=== PATIENT | female | born 1950 | race Caucasian/White ===

== ENCOUNTER 2016-11-13 14:31 | Inpatient (IN) | payer OTHER ==
[2016-11-13] VITALS (7 sets, daily range): BP systolic 0–139; BP diastolic 0–82
[~2016-11-13] VITALS: Ht 157.5 cm; Wt 53.3 kg
[~2016-11-13 14:31] MED LIST: ADVAIR; ADVAIR 250/501 DISK IH; ALPRAZOLAM1 MG; AMBIEN CR12.5 MG PO; AMBIEN10 MG PO; AMBIEN5 MG PO; ASPIR 8181 M1 PO; ASPIR-LOW81 MG PO; ASPIRIN E.C.81 M1 PO; ASPIRIN EC325 MG PO; ASPIRIN325 MG PO; ATORVASTATIN; ATORVASTATIN CA40 MG PO; Advair HFA 115/21 IH; Aspirin E.C. PO; B COMPLETE1 EACH PO; CALCIUM CARB1 TABLET PO; CARDIZEM CD,CA120 MG PO; CEFTIN500 MG PO; CITRATE OF MAG296 ML PO; CLOPIDOGREL75 MG PO; CONCERTA18 MG PO; CORRECTOL5 M1 PO; COZAAR25 MG PO; DAILY MULTIPLE1 EACH PO; DECLOMYCIN150 MG PO; DEPAKOTE500 MG PO; DIAZEPAM2 MG PO; DIAZEPAM5 MG PO; DIGITEK250 MC2 PO; DIGOXIN250 MCG PO; DILAUDID1 MG/ML IV; DILAUDID2 MG PO; DILAUDID4 MG PO; DIVALPROEX SOD500 M1 PO; DIVALPROEX SOD500 MG PO; DULCOLAX10 MG PR; ENALAPRIL MALEAT5 MG PO; FAMOTIDINE20 MG PO; FLEET ENEMA-AD118 ML PR; FLORANEX CHE1 TABLET PO; FUROSEMIDE20 MG PO; GLUCOSE4 GM PO; HYDROMORPHONE HC4 MG PO; IBUPROFEN200 M1 PO; IPRATR-ALBUTEROL3 ML IH; IPRATROPIU0.2 MG/1 M IH; ISOSORBIDE MONO60 MG PO; KADIAN30 MG PO; KETOCONAZOLE60 GM TP; LASIX20 MG PO; LEVAQUIN750 MG PO; LICORICE ROOT; LIPITOR40 MG PO; LOPRESSOR100 M1 PO; LOPRESSOR25 MG PO; LOPRESSOR50 MG PO; LORATADINE10 M2 PO; LOSARTAN POTASS25 MG PO; LOVENOX40 MG/0.4 SC; LOVENOX60 MG/0.6 SC; LYRICA50 MG PO; Lasix PO; Lecithin; Lipitor PO; Lopressor PO; MAALOX ADVANCE355 ML PO; METAMUCIL0.52 GM PO; METHYLPHENIDATE36 MG; METOPROLOL; METOPROLOL SUC100 MG; METOPROLOL TA37.5 MG PO; METOPROLOL TAR100 MG PO; METOPROLOL TART25 MG PO; METOPROLOL TART50 MG PO; MILK OF MAGN PO; MORPHINE SULFAT15 M1 PO; MORPHINE SULFAT30 M2 PO; MOXIFLOXACIN H400 MG PO; MUCINEX600 MG PO; MUCUS ER600 MG PO; NALOXONE HC1 MG/1 ML IV; NICOTINE PATCH1 EAC2 TD; NITRO; NITRO-DUR1 EAC1 TD; NITROGLYCERIN0.4 MG SL; NITROGLYCERIN1 EAC1 TD; NITROPATCH; NITROSTAT0.4 MG SL; OMEGA-31000 M1 PO; OMEPRAZOLE20 MG PO; ONDANSETRON4 MG/2 ML IV; PHILLIPS'400 MG/5 M PO; PLAVIX75 MG PO; PREDNISONE10 MG PO; PREDNISONE20 MG PO; PREDNISONE50 MG PO; PRILOSEC20 MG PO; PROAIR HFA8.5 GM IH; PROCHLORPERAZINE5 MG PO; PROMETHAZINE12.5 M1 PO; PULMICORT FLE180 MCG IH; Plavix PO; QUETIAPINE FUMA25 MG PO; RANITIDINE HCL150 M1 PO; RANITIDINE HCL150 MG PO; ROCEPHIN; SENNA-DOCUSATE1 EAC1 PO; SENNA-TIME S T1 EACH PO; SENOKOT,SENN1 TABLET PO; SEROquel PO; SERTRALINE HCL100 MG; SILVASORB TP; SODIUM CHLORIDE1 G1 PO; SPIRIVA RESPIMAT4 GM IH; SYMBICORT60 INHALAT IH; SYNTHROID; TRAZODONE HCL50 MG PO; TYLENOL REGULA325 MG PO; VALIUM5 MG PO; VALSARTAN40 MG PO; VENTOLIN HFA18 GM IH; VITAMIN D31000 UNIT PO; VITAMIN E1000 UNI1 PO; Valium PO; ZITHROMAX Z-PA250 MG PO; ZOLPIDEM TART12.5 MG PO; ZOLPIDEM TARTRA10 MG PO; Zestril,Prinivil PO
[2016-11-13 15:57] LABS: HEMATOCRIT 38.4 % (36.0-46.0); MCH 30.5 PG (29.0-34.0); MCHC 32.8 G/DL (30.0-36.0); MEAN PLAT.VOLUME 9.8 uM^3 (9.5-12.4); RBC DIS.WIDTH-CV 14.9 % (11.8-14.6); RBC DIS.WIDTH-SD 48.4 % (39-53)
[2016-11-13 16:00] LABS: PLATELET COUNT 293 K/uL (156-360); RED BLOOD COUNT 4.13 M/uL (3.80-5.20); WHITE BLOOD COUNT 20.8 K/uL (4.1-10.2)
[2016-11-13 16:01] LABS: CARBON DIOXIDE (BICARBONATE) 34.4 MEQ/L (20-31)
[2016-11-13 16:02] LABS: CHLORIDE 95 mEq/L (99-109); POTASSIUM 5.1 mEq/L (3.7-5.4); SODIUM 134 mEq/L (136-147)
[2016-11-13 16:04] LABS: GLUCOSE 190 mg/dL (70-99)
[2016-11-13 16:06] LABS: ANION GAP 13 MEQ/L (2-14)
[2016-11-13 16:08] LABS: GFR ESTIMATE (CALCULATED) 59 mL/min/
[2016-11-13 16:09] LABS: UREA NITROGEN (BUN) 18 mg/dL (9-23)
[2016-11-13 16:15] LABS: TROP-I INTERPRETATION NEGATIVE; TROPONIN-I 0.25 ng/mL (0.0-0.30)
[2016-11-13 21:13] LABS: METH RESISTANT S AUREUS PCR NEGATIVE (NEGATIVE)
[2016-11-13 21:17] LABS: PROBE CHECK PASS; SPECIMEN PROCESSING CONTROL PASS
[2016-11-13] MEDS ORDERED: KADIAN30 MG PO (23:31)
[2016-11-13] MEDS ORDERED: DILAUDID4 MG PO (23:38)
[2016-11-13] MEDS ORDERED: NITROGLYCERIN0.4 MG SL (23:39)
[2016-11-13] MEDS ORDERED: AMBIEN10 MG PO (23:40)
[2016-11-13] MEDS ORDERED: CORRECTOL5 M1 PO (23:41)
[2016-11-13] MEDS ORDERED: PLAVIX75 MG PO (23:41)
[2016-11-13] MEDS ORDERED: KETOCONAZOLE60 GM TP (23:42)
[2016-11-13] MEDS ORDERED: PRILOSEC20 MG PO (23:43)
[2016-11-13] MEDS ORDERED: FLORANEX CHE1 TABLET PO (23:44)
[2016-11-13] MEDS ORDERED: NITROGLYCERIN1 EAC1 TD (23:46)
[2016-11-13] MEDS ORDERED: PROMETHAZINE12.5 M1 PO (23:47)
[2016-11-13] MEDS ORDERED: MAALOX ADVANCE355 ML PO (23:48)
[2016-11-13] MEDS ORDERED: TRAZODONE HCL50 MG PO (23:49)
[2016-11-13] MEDS ORDERED: MILK OF MAGN PO (23:50)
[2016-11-13] MEDS ORDERED: PROAIR HFA8.5 GM IH (23:51)
[2016-11-13] MEDS ORDERED: LO-DOSE ASPIRIN81 M2 PO (23:52)
[2016-11-13] MEDS ORDERED: LIPITOR40 MG PO (23:52)
[2016-11-13] MEDS ORDERED: LASIX20 MG PO (23:54)
[2016-11-13] MEDS ORDERED: DEPAKOTE250 MG PO (23:54)
[2016-11-13] MEDS ORDERED: COZAAR25 MG PO (23:55)
[2016-11-13] MEDS ORDERED: SODIUM CHLORIDE1 G1 PO (23:55)
[2016-11-13] MEDS ORDERED: MUCUS ER600 MG PO (23:56)
[2016-11-13] MEDS ORDERED: DELTASONE20 M1 PO (23:58)
[2016-11-13] MEDS ORDERED: METOPROLOL TA37.5 MG PO (23:59)
[2016-11-13] MEDS ORDERED: LEVAQUIN750 MG PO (23:59)
[2016-11-14] VITALS (9 sets, daily range): BP systolic 96–153; BP diastolic 54–98
[2016-11-14 06:26] LABS: MCH 30.4 PG (29.0-34.0); MCHC 32.8 G/DL (30.0-36.0); MCV 92.8 FL (83-99); RBC DIS.WIDTH-CV 15.1 % (11.8-14.6); RBC DIS.WIDTH-SD 51.4 % (39-53); RED BLOOD COUNT 3.45 M/uL (3.80-5.20); WHITE BLOOD COUNT 9.6 K/uL (4.1-10.2)
[2016-11-14 06:47] LABS: ANION GAP 9 MEQ/L (2-14); CHLORIDE 95 MEQ/L (99-109); GFR ESTIMATE (CALCULATED) > 59 mL/min/; POTASSIUM 4.5 MEQ/L (3.7-5.4); SAMPLE HEMOLYSIS CHECK 0; SAMPLE ICTERIC CHECK 0; SAMPLE LIPEMIA CHECK 0; SODIUM 135 MEQ/L (136-147); UREA NITROGEN (BUN) 19 mg/dL (9-23)
[2016-11-14 06:55] LABS: GLUCOSE 82 mg/dL (70-99)
[2016-11-14 07:01] LABS: TROP-I INTERPRETATION NEGATIVE; TROPONIN-I 0.17 ng/mL (0.0-0.30)
[2016-11-14 07:10] LABS: MEAN PLAT.VOLUME 10.4 uM^3 (9.5-12.4)
[2016-11-14 07:15] LABS: PLATELET COUNT 192 K/uL (156-360)
[2016-11-14 13:10] LABS: TROP-I INTERPRETATION NEGATIVE; TROPONIN-I 0.13 ng/mL (0.0-0.30)
[2016-11-15] VITALS: BP 148/91
[2016-11-15 04:13] VITALS: BP 122/64
[2016-11-15 06:25] LABS: MCHC 32.8 G/DL (30.0-36.0); MCV 91.5 FL (83-99); MEAN PLAT.VOLUME 10.2 uM^3 (9.5-12.4); PLATELET COUNT 192 K/uL (156-360); RBC DIS.WIDTH-CV 14.9 % (11.8-14.6); RED BLOOD COUNT 3.17 M/uL (3.80-5.20); WHITE BLOOD COUNT 7.9 K/uL (4.1-10.2)
[2016-11-15 07:02] LABS: ANION GAP 5 MEQ/L (2-14); CHLORIDE 90 MEQ/L (99-109); GFR ESTIMATE (CALCULATED) > 59 mL/min/; MAGNESIUM 1.9 mg/dl (1.3-2.7); POTASSIUM 4.3 MEQ/L (3.7-5.4); SAMPLE HEMOLYSIS CHECK 0; SAMPLE ICTERIC CHECK 0; SAMPLE LIPEMIA CHECK 0; SODIUM 129 MEQ/L (136-147); UREA NITROGEN (BUN) 18 mg/dL (9-23)
[2016-11-15 07:04] LABS: GLUCOSE 108 mg/dL (70-99)
[2016-11-15 08:18] VITALS: BP 126/68
[2016-11-15 11:30] VITALS: BP 110/57
[2016-11-15 16:38] VITALS: BP 135/90
[2016-11-15 20:44] VITALS: BP 132/68
[2016-11-16 04:05] VITALS: BP 139/84
[2016-11-16 05:01] LABS: HEMATOCRIT 31.7 % (36.0-46.0); MCH 29.9 PG (29.0-34.0); MCHC 32.8 G/DL (30.0-36.0); MCV 91.1 FL (83-99); MEAN PLAT.VOLUME 9.9 uM^3 (9.5-12.4); PLATELET COUNT 221 K/uL (156-360); RBC DIS.WIDTH-CV 14.4 % (11.8-14.6); RBC DIS.WIDTH-SD 46.3 % (39-53); RED BLOOD COUNT 3.48 M/uL (3.80-5.20); WHITE BLOOD COUNT 9.4 K/uL (4.1-10.2)
[2016-11-16 05:10] LABS: CHLORIDE 86 mEq/L (99-109); POTASSIUM 4.3 mEq/L (3.7-5.4); SODIUM 126 mEq/L (136-147)
[2016-11-16 05:11] LABS: MAGNESIUM 1.8 mg/dL (1.3-2.7)
[2016-11-16 05:12] LABS: GLUCOSE 107 mg/dL (70-99)
[2016-11-16 05:14] LABS: ANION GAP 11 MEQ/L (2-14)
[2016-11-16 05:16] LABS: GFR ESTIMATE (CALCULATED) > 59 mL/min/
[2016-11-16 05:17] LABS: UREA NITROGEN (BUN) 19 mg/dL (9-23)
[2016-11-16 08:28] VITALS: BP 164/84
[2016-11-16 11:03] VITALS: BP 123/60
[2016-11-16 15:49] VITALS: BP 134/73
[2016-11-16 19:41] VITALS: BP 151/71
[2016-11-16 23:34] VITALS: BP 98/58
[2016-11-17 04:27] VITALS: BP 142/69
[2016-11-17 06:01] LABS: HEMATOCRIT 29.9 % (36.0-46.0); MCH 30.2 PG (29.0-34.0); MCHC 33.4 G/DL (30.0-36.0); MCV 90.3 FL (83-99); MEAN PLAT.VOLUME 10.1 uM^3 (9.5-12.4); PLATELET COUNT 209 K/uL (156-360); RBC DIS.WIDTH-CV 14.7 % (11.8-14.6); RBC DIS.WIDTH-SD 48.5 % (39-53); RED BLOOD COUNT 3.31 M/uL (3.80-5.20)
[2016-11-17 06:37] LABS: ANION GAP 5 MEQ/L (2-14); CHLORIDE 86 MEQ/L (99-109); GFR ESTIMATE (CALCULATED) > 59 mL/min/; GLUCOSE 87 mg/dL (70-99); POTASSIUM 4.6 MEQ/L (3.7-5.4); SAMPLE HEMOLYSIS CHECK 0; SAMPLE ICTERIC CHECK 0; SAMPLE LIPEMIA CHECK 0; SODIUM 128 MEQ/L (136-147); UREA NITROGEN (BUN) 21 mg/dL (9-23)
[2016-11-17 07:47] VITALS: BP 132/70
[2016-11-17 11:35] VITALS: BP 105/58
[2016-11-17] MEDS ORDERED: DEPAKOTE500 MG PO (13:22)
[2016-11-17 16:51] VITALS: BP 112/62
[2016-11-17 20:24] VITALS: BP 131/73
[2016-11-18 00:13] VITALS: BP 138/77
[2016-11-18 04:27] VITALS: BP 128/60
[2016-11-18 06:08] LABS: HEMATOCRIT 30.2 % (36.0-46.0); MCH 30.4 PG (29.0-34.0); MCHC 33.4 G/DL (30.0-36.0); MEAN PLAT.VOLUME 9.7 uM^3 (9.5-12.4); PLATELET COUNT 213 K/uL (156-360); RBC DIS.WIDTH-SD 49.8 % (39-53); RED BLOOD COUNT 3.32 M/uL (3.80-5.20); WHITE BLOOD COUNT 8.1 K/uL (4.1-10.2)
[2016-11-18 06:38] LABS: ANION GAP 5 MEQ/L (2-14); CHLORIDE 89 MEQ/L (99-109); GFR ESTIMATE (CALCULATED) > 59 mL/min/; GLUCOSE 91 mg/dL (70-99); MAGNESIUM 2.1 mg/dl (1.3-2.7); POTASSIUM 5.3 MEQ/L (3.7-5.4); SAMPLE HEMOLYSIS CHECK 0; SAMPLE ICTERIC CHECK 0; SAMPLE LIPEMIA CHECK 0; SODIUM 131 MEQ/L (136-147); UREA NITROGEN (BUN) 24 mg/dL (9-23)
[2016-11-18 08:05] VITALS: BP 129/75
[2016-11-18] MEDS ORDERED: PREDNISONE10 MG PO (10:49)
[2016-11-18] MEDS ORDERED: LEVOFLOXACIN750 MG PO (10:49)
[2016-11-18] MEDS ORDERED: SPIRIVA RESPIMAT4 GM IH (10:49)
[2016-11-18] MEDS ORDERED: FUROSEMIDE40 MG PO (10:49)
[2016-11-18] MEDS ORDERED: LASIX20 MG PO (10:49)
== END 2016-11-18 17:17 | disposition home or self-care (01) | DRG 190 ==
LOC: EME → EDBD 14:31 → EME 14:31 → 4WEST 17:14 → 3EAST 17:14 → EDOF 17:14 → 4WEST 19:15 → 3EAST 11-15 00:52
PROVIDERS: Emergency Medicine; Internal Medicine Nephrology
DX: J44.1 Chronic obstructive pulmonary disease with (acute) exacerbation (principal); J96.22 Acute and chronic respiratory failure with hypercapnia; J18.9 Pneumonia, unspecified organism; J96.01 Acute respiratory failure with hypoxia; I50.23 Acute on chronic systolic (congestive) heart failure; J81.0 Acute pulmonary edema; J81.1 Chronic pulmonary edema; E22.2 Syndrome of inappropriate secretion of antidiuretic hormone; N17.9 Acute kidney failure, unspecified; R41.82 Altered mental status, unspecified; I48.91 Unspecified atrial fibrillation; I10 Essential (primary) hypertension; G89.29 Other chronic pain; K21.9 Gastro-esophageal reflux disease without esophagitis; R56.9 Unspecified convulsions; I25.10 Atherosclerotic heart disease of native coronary artery without angina pectoris; F32.9 Major depressive disorder, single episode, unspecified; E78.5 Hyperlipidemia, unspecified; F41.9 Anxiety disorder, unspecified; I25.2 Old myocardial infarction; Z99.81 Dependence on supplemental oxygen; Z87.01 Personal history of pneumonia (recurrent); Z88.0 Allergy status to penicillin; Z88.6 Allergy status to analgesic agent; Z87.891 Personal history of nicotine dependence; Z95.5 Presence of coronary angioplasty implant and graft; Z79.891 Long term (current) use of opiate analgesic; Z91.041 Radiographic dye allergy status
CPT/HCPCS: 71010; 71020; 80048; 82436; 82803; 83605; 83735; 83880; 83935; 84100; 84133; 84300; 84484; 85027; 87040; 87641; 93005; 94002; 94640; 94640 76; 94760; 94799; 99202; 99281; 99285; J1644; J1940; J1956; J2405; J7512